=== PATIENT | female | born 1990 ===

== ENCOUNTER 2021-01-02 10:02 | Outpatient (CLI) | payer OTHER | END 2021-01-02 10:07 | disposition home or self-care (01) | LOC: RX STUDY 10:02 | DX: D25.2 Subserosal leiomyoma of uterus (principal); N80.8 Other endometriosis ==

== ENCOUNTER 2021-04-22 13:35 | Outpatient (CLI) | payer OTHER | END 2021-04-22 13:39 | disposition home or self-care (01) | LOC: SONOGRAMA 13:35 → MAMO-SONO 14:45 | PROVIDERS: ATTEND Obstetrics & Gynecology | DX: N64.59 Other signs and symptoms in breast (principal); Z80.3 Family history of malignant neoplasm of breast ==

== ENCOUNTER 2024-05-20 07:56 | Outpatient (CLI) | payer OTHER | END 2024-05-20 08:03 | disposition home or self-care (01) | LOC: MRI 07:56 | DX: R19.00 Intra-abdominal and pelvic swelling, mass and lump, unspecified site (principal) | CPT/HCPCS: 72196 ==

== ENCOUNTER 2024-09-15 08:47 | Outpatient (CLI) | payer OTHER | END 2024-09-15 08:55 | disposition home or self-care (01) | LOC: MRI 08:47 | PROVIDERS: ATTEND General Practice | DX: K57.40 Diverticulitis of both small and large intestine with perforation and abscess without bleeding (principal); M54.17 Radiculopathy, lumbosacral region; M54.50 Low back pain, unspecified | CPT/HCPCS: 72148 ==

== ENCOUNTER 2024-10-20 09:59 | Outpatient (CLI) | payer OTHER | END 2024-10-20 10:04 | disposition home or self-care (01) | LOC: MRI 09:59 | PROVIDERS: ATTEND General Practice | DX: M25.511 Pain in right shoulder (principal) | CPT/HCPCS: 73222 ==

== ENCOUNTER 2024-11-28 09:35 | Outpatient (CLI) | payer OTHER | END 2024-11-28 09:37 | disposition home or self-care (01) | LOC: SONOGRAMA 09:35 | DX: R59.1 Generalized enlarged lymph nodes (principal) ==

== ENCOUNTER 2025-04-17 07:44 | Outpatient (CLI) | payer OTHER | END 2025-04-17 07:52 | disposition home or self-care (01) | LOC: MRI 07:44 | PROVIDERS: ATTEND General Practice | DX: K70.40 Alcoholic hepatic failure without coma (principal) | CPT/HCPCS: 72196 ==